=== PATIENT | male | born 1965 | race Caucasian/White ===

== ENCOUNTER 2021-09-15 23:19 | Emergency (ER) | payer OTHER ==
[2021-09-16] MEDS ORDERED: BACITRACIN15 GM TOP (02:59)
[2021-09-16] MEDS ORDERED: VIBRAMYCIN100 MG PO (02:59)
== END 2021-09-16 03:12 | disposition home or self-care (01) ==
LOC: FER 23:19
DX: N48.22 Cellulitis of corpus cavernosum and penis (principal); F15.10 Other stimulant abuse, uncomplicated; F60.9 Personality disorder, unspecified; F17.210 Nicotine dependence, cigarettes, uncomplicated
CPT/HCPCS: 99283